=== PATIENT | male | born 1945 | race Caucasian/White ===

== ENCOUNTER → 2018-02-28 08:03 | Outpatient (REF) | payer MEDICARE, SELFPAY | LOC: LAB 08:03 | PROVIDERS: Family Provider Internal Medicine; PCP Dermatology; Visit Provider Dermatology | DX: L02.821 Furuncle of head [any part, except face] (principal) | CPT/HCPCS: 87070; 87075; 87205 ==

== ENCOUNTER → 2019-11-13 11:31 | Outpatient (CLI) | payer OTHER, SELFPAY ==
--- NOTE | 2019-11-13 | DI.CT.S_ITS ---
PROCEDURE: CT SOFT TISSUE NECK W CON INDICATIONS: Chronic pharyngitis TECHNIQUE: After the administration of intravenous contrast, 3.0 mm axial sections acquired from the sella to the aortic arch. Additional oblique axial 3.0 mm sections acquired through the pharynx. 3 mm thick coronal and sagittal reformats were generated. For radiation dose reduction, the following was used: automated exposure control. COMPARISON: None. FINDINGS: Image quality: Excellent. Lymph nodes: No enlarged lymph nodes seen throughout the neck. Vessels: Visualized vasculature appears patent. Neck spaces: The oropharynx, nasopharynx, and pharynx demonstrate no mucosal lesions. The vocal cords, false vocal cords, pyriform sinuses, epiglottis, vallecula, and tongue base all appear normal. Extramucosal spaces appear unremarkable. Glands: The parotid and submandibular glands appear normal. Thyroid gland is normal. Miscellaneous: Visualized brain and orbits appear normal. Lung apices appear clear. Severe emphysematous Superficial soft tissues appear normal. Bones: There is fusion of C5-C7. There is mild degenerative disease at C3-C4 and C4-C5. Mild/moderate bilateral facet arthropathy at C2-C3, C3-C4 and C4-C5. No suspicious bony lesions. Visualized sinuses and mastoids appear unremarkable. IMPRESSION: 1. No acute abnormalities. 2. Severe emphysema. 3. Degenerative and postsurgical changes in cervical spine. Dictated by: Hayley Kirby M.D. on 11/13/2019 at 16:23 Approved by: Hayley Kirby M.D. on 11/13/2019 at 17:59
[2019-11-13 12:12] LABS: BUN Creatinine Ratio 32.9 (6-22); Blood Urea Nitrogen 23 mg/dL (9-20); Calcium 9.6 mg/dL (8.4-10.2); Carbon Dioxide 30 mmol/L (22-32); Chloride 102 mmol/L (98-107); Estimated Glomerular Filt Rate > 60.0 mL/min (>60); Glucose 110 mg/dL (80-110); HEMOLYSIS 36 (0-50); Potassium 4.3 mmol/L (3.4-5.1); Sodium 141 mmol/L (137-145)
== END ==
DX: J31.2 Chronic pharyngitis (principal); J43.9 Emphysema, unspecified; M47.812 Spondylosis without myelopathy or radiculopathy, cervical region; M50.31 Other cervical disc degeneration, high cervical region; Z98.1 Arthrodesis status
CPT/HCPCS: 36415; 70491; 80048; Q9967

== ENCOUNTER → 2020-03-06 12:40 | Outpatient (CLI) | payer OTHER, SELFPAY ==
--- NOTE | 2020-03-06 | DI.CT.S_ITS ---
PROCEDURE: CT CHEST WO CON INDICATIONS: EMPHYSEMA TECHNIQUE: Noncontrast 5 mm thick sections acquired from the pulmonary apices to the posterior costophrenic angles. 1 mm lung window, 5 mm thick coronal and sagittal and 7 mm axial MIP reformats were then acquired. For radiation dose reduction, the following was used: automated exposure control, adjustment of mA and/or kV according to patient size. COMPARISON: [facility], CT, CHEST ANGIO-PE, 05/17/2014, 21:12. FINDINGS: Image quality: Excellent. Lungs and pleura: No acute consolidation. There is extensive and diffuse upper lobe predominant emphysema. Large biapical pleural blebs. No pleural effusions or pneumothorax. Central and peripheral airways are patent and normal in caliber. Mediastinum: Heart size is normal. Coronary artery calcifications are present. No pericardial effusion. No mediastinal adenopathy by size criteria. Thoracic aorta and central pulmonary arteries are normal in size. Esophagus is normal in caliber. No hiatal hernia. Bones and chest wall: No suspicious bony lesions. Diffuse osteopenia. Multilevel spondylitic changes. No vertebral body compression fractures. No axillary or supraclavicular adenopathy by size criteria. Thyroid gland negative. Abdomen: Visualized upper abdominal solid organs and bowel loops appear normal in the absence of contrast. IMPRESSION: Severe, upper lobe predominant diffuse emphysema. This appears mildly progressed since 05/17/14. Coronary artery disease. Dictated by: Harvey Arzola M.D. on 03/06/2020 at 15:19 Approved by: Harvey Arzola M.D. on 03/06/2020 at 15:25
== END ==
PROVIDERS: Visit Provider Internal Medicine
DX: J43.9 Emphysema, unspecified (principal); I25.10 Atherosclerotic heart disease of native coronary artery without angina pectoris
CPT/HCPCS: 71250

== ENCOUNTER 2022-06-11 10:24 | Emergency (ER) | payer OTHER, SELFPAY ==
[2022-06-11 10:26] VITALS: BP 148/68; PULSE 84; RESP 16; TEMP 36.7; O2SAT 94; BMI 26.2
[2022-06-11 10:29] VITALS: BP 148/68; PULSE 85; O2SAT 97
[2022-06-11 10:30] VITALS: BP 148/67; PULSE 74; O2SAT 95
--- NOTE | 2022-06-11 10:32 | DI.RAD.S_ITS ---
PROCEDURE: XR CHEST 2V INDICATIONS: shortness of breath TECHNIQUE: 2 views of the chest were acquired. COMPARISON: [facility], , CHEST 2 VIEW, 05/25/2014, 14:20. FINDINGS: Surgical changes and devices: None. Lungs and pleura: Centrilobular emphysema. Lungs are clear. No pleural effusions or pneumothorax. Mediastinum: Mediastinal contours are normal. Heart size is normal. Bones and chest wall: No suspicious bony abnormalities. Soft tissues appear unremarkable. IMPRESSION: COPD. No evidence acute pulmonary process. Dictated by: Guru Qiu M.D. on 06/11/2022 at 11:12 Approved by: Guru Qiu M.D. on 06/11/2022 at 11:13
--- NOTE | 2022-06-11 10:37 | PC.NURSE ---
pt reports blood in urine starting last night, some sob especially with exertion, teleheath visit with from [facility] and advised to get checked further in [place].
[2022-06-11 10:49] LABS: Prothrombin Time 11.7 SECONDS (10.1-12.7)
[2022-06-11 10:51] LABS: PTT Partial Thromboplastin Tim 31 SECONDS (26.4-36.2)
[2022-06-11 10:52] LABS: Alanine Aminotransferase 16 IU/L (<50); Albumin 4.3 g/dL (3.5-5.0); Albumin Globulin Ratio 1.4 (1.0-2.8); Alkaline Phosphatase 102 U/L (38-126); Aspartate Aminotransferase 22 IU/L (17-59); BUN Creatinine Ratio 20.5 (6-22); Bilirubin Total 0.6 mg/dL (0.2-1.3); Blood Urea Nitrogen 17 mg/dL (9-20); Calcium 9.2 mg/dL (8.4-10.2); Carbon Dioxide 28 mmol/L (22-32); Chloride 102 mmol/L (98-107); Estimated Glomerular Filt Rate > 60 mL/min (>60); Globulin 3.1 g/dL (1.7-4.1); Glucose 147 mg/dL (80-110); HEMOLYSIS < 15 (0-50); Potassium 4.1 mmol/L (3.4-5.1); Sodium 139 mmol/L (137-145); Total Protein 7.4 g/dL (6.3-8.2)
[2022-06-11 10:55] LABS: Add Manual Diff / Slide Review NO; Basophils Absolute Auto 100 /uL (0-100); Basophils Percent Auto 0.7 % (0-2); Creatine Kinase 49 U/L (55-170); Eosinophils Absolute Auto 100 /uL (0-450); Eosinophils Percent Auto 0.6 % (2-4); Hematocrit 44.2 % (41-53); Hemoglobin 15.4 g/dL (13.5-17.5); Lactate (Lactic Acid) 1.3 mmol/L (0.7-2.1); Lymphocytes Absolute Auto 900 /uL (1100-4500); Lymphocytes Percent Auto 8.9 % (25-40); Mean Corpuscular HGB Conc 34.8 % (30-36); Mean Corpuscular Hemoglobin 32.3 PG (26-34); Mean Corpuscular Volume 92.7 fL (80-100); Monocytes Absolute Auto 500 /uL (0-900); Monocytes Percent Auto 4.7 % (3-14); Neutrophils Absolute Auto 9000 /uL (1500-7000); Neutrophils Percent Auto 85.1 % (50-75); Platelet Count 235 X10^3/uL (150-400); Red Blood Cell Count 4.78 X10^6/uL (4.5-5.9); Red Cell Distribution Width 15.1 % (11.6-14.8); White Blood Cell Count 10.5 X10^3/uL (4.5-11.0)
--- NOTE | 2022-06-11 10:58 | ED_ITS ---
HPI - Male Genitourinary General Chief complaint: Urogenital-Male Stated complaint: UTI with hematuria- sent by [facility] Time Seen by Provider: 06/11/22 10:34 Source: patient Mode of arrival: Ambulatory Limitations: no limitations History of Present Illness HPI Narrative: This is a 76-year-old male with history of recurrent UTIs for the past 5 years, patient had cystoscopy 3-4 years ago, COPD on home O2, patient has had a low back fusion x2 and developed complications with foot drop which improved over time. Patient presents today states a month ago he had a bladder infection was on Keflex for 7 days instead of what he was expecting 10. He states symptoms improved but maybe never totally resolved. Wednesday he had increasing urgency. This morning he woke up at about 4:00 a.m. with increasing urgency, hematuria with clots and dysuria. Patient denies fevers or chills. No chest pain or pressure. Some very mild shortness of breath. No nausea or vomiting. He states he has been recently somewhat constipated used an enema and sometimes takes Dulcolax. Patient does have a sense of incomplete emptying normally and does not feel a significant change or that he is retaining a large amount of urine. No new swelling in extremities. Allergies include gabapentin, patient states Cipro gives him significant tendon pain but he has had Levaquin without issue. Related Data Home Medications Medication Instructions Recorded Confirmed ALUM HYD/MAG HYD (#MAALOX) 30 ml TIDP ##0 01/28/12 CYANOCOBALAMIN (#VITAMIN B12) 2,500 mcg sublingual Q DAY ##0 01/28/12 Multivitamin, Minerals, and 1 tab PO Q DAY ##0 01/28/12 (#CENTRUM SILVER) OMEPRAZOLE 20 mg BID ##0 01/28/12 Oxycodone (OXYCODONE IR) 5 mg PO QID ##0 01/28/12 Ranitidine Hydrochloride 300 mg PO HS ##0 01/28/12 (RANITIDINE) docusate sodium 100 mg capsule 200 mg PO QDAY ##0 01/28/12 Previous Rx's Medication Instructions Recorded nitrofurantoin 100 mg PO Q12H #20 caps 06/11/22 monohydrate/macrocrystals 100 mg capsule (Macrobid) Allergies Allergy/AdvReac Type Severity Reaction Status Date / Time gabapentin [From Neurontin] Allergy Verified 06/11/22 10:30 nitrofurantoin Allergy Verified 06/11/22 10:30 Review of Systems Review of Systems ROS Unobtainable: All systems reviewed & are unremarkable except as noted in HPI and below Patient History Social History Smoking Status: Current some day smoker Smoking Status: Current some day smoker alcohol intake frequency: holidays/special occasions only Substance Use Type: does not use Exam Narrative Exam Narrative: GENERAL: Alert and oriented x three, elderly male in mild distress. HEENT: Head normocephalic, atraumatic, EOMI, pupils reactive, face symmetric, moist mucous membranes NECK: Supple, full range of motion CARDIOVASCULAR: Regular rate and rhythm without murmurs, rubs or gallops. RESPIRATORY: Breath sounds equal bilaterally, no wheezes rales or rhonchi. ABDOMEN: Soft, nontender. Normoactive bowel sounds all 4 quadrants. No guarding or rebound, rigidity, no mass : No CVA tenderness EXTREMITIES: Normal range of motion, no clubbing or edema. Neurovascularly intact NEUROLOGICAL: Cranial nerves II through XII grossly intact. Moving all extremities SKIN: Warm, dry, no petechiae, no rashes or lesions. Initial Vital Signs Initial Vital Signs: Vital Signs Temperature 98.0 F 06/11/22 10:26 Pulse Rate 84 06/11/22 10:26 Respiratory Rate 16 06/11/22 10:26 Blood Pressure 148/68 H 06/11/22 10:26 Pulse Oximetry 94 06/11/22 10:26 Oxygen Delivery Method 06/11/22 10:26 Course Orders Ordered: ED Orders 06/11/22 10:32 XR chest 2V Stat BNP [NT-proBNP (BNP-Adult 18+)] Stat CBC Auto Diff [Complete Blood Count AUTO DIFF] Stat CMP [Comprehensive Metabolic Panel] Stat Lactate (Lactic Acid) Stat PTT [Partial Thromboplastin Time] Stat Prothrombin Time INR Stat Troponin & CK Cardiac Panel Stat UA Complete [Urinalysis and Microscopic] Stat Urine Culture Stat Measure peak expiratory flow ONCE RT Consult Eval and Treat Now 06/11/22 10:40 EKG-12 Lead Stat Vital Signs Vital signs: Vital Signs - 8 hr 06/11/22 10:26 06/11/22 10:29 06/11/22 10:29 Temperature 98.0 F Pulse Rate 84 85 Respiratory Rate 16 Blood Pressure 148/68 H 148/68 H Pulse Oximetry 94 97 Oxygen Delivery Method Room Air 06/11/22 10:30 06/11/22 10:30 Temperature Pulse Rate 74 Respiratory Rate Blood Pressure 148/67 H Pulse Oximetry 95 Oxygen Delivery Method MDM - Male Genitourinary Lab Data Result diagrams: 06/11/22 10:32 06/11/22 10:32 Labs: Lab Results 06/11/22 06/11/22 06/11/22 Range/Units 10:32 10:32 10:32 WBC 10.5 (4.5-11.0) X10^3/uL RBC 4.78 (4.5-5.9) X10^6/uL Hgb 15.4 (13.5-17.5) g/dL Hct 44.2 (41-53) % MCV 92.7 (80-100) fL MCH 32.3 (26-34) PG MCHC 34.8 (30-36) % RDW 15.1 H (11.6-14.8) % Plt Count 235 (150-400) X10^3/uL Neut % (Auto) 85.1 H (50-75) % Lymph % (Auto) 8.9 L (25-40) % [place] % (Auto) 4.7 (3-14) % Eos % (Auto) 0.6 L (2-4) % Baso % (Auto) 0.7 (0-2) % Neut # (Auto) 9000 H (5079-2556) /uL Lymph # (Auto) 900 L (3518-6658) /uL [place] # (Auto) 500 (0-900) /uL Eos # (Auto) 100 (0-450) /uL Baso # (Auto) 100 (0-100) /uL PT 11.7 (10.1-12.7) SECONDS INR 1.0 (0.9-1.3) APTT 31 (26.4-36.2) SECONDS Sodium (137-145) mmol/L Potassium (3.4-5.1) mmol/L Chloride (98-107) mmol/L Carbon Dioxide (22-32) mmol/L BUN (9-20) mg/dL Creatinine (0.66-1.25) mg/dL Estimated GFR (>60) mL/min BUN/Creatinine Ratio (6-22) Glucose (80-110) mg/dL Lactate 1.3 (0.7-2.1) mmol/L Calcium (8.4-10.2) mg/dL Total Bilirubin (0.2-1.3) mg/dL AST (17-59) IU/L ALT (<50) IU/L Alkaline Phosphatase (38-126) U/L Total Creatine Kinase (55-170) U/L CK-MB (CK-2) CK-MB (CK-2) Rel Index Troponin I (0.01-0.034) ng/mL NT-Pro-B Natriuret Pep (<450) pg/mL Total Protein (6.3-8.2) g/dL Albumin (3.5-5.0) g/dL Globulin (1.7-4.1) g/dL Albumin/Globulin Ratio (1.0-2.8) Urine Color Urine Appearance Urine pH (4.5-8.0) Ur Specific [place] (1.000-1.035) Urine Protein (Negative) Urine Glucose (UA) (Negative) g/dL Urine Ketones (NEGATIVE) Urine Occult Blood (Negative) Urine Nitrate (Negative) Urine Bilirubin (NEGATIVE) Urine Urobilinogen (0.2) E.U./dL Ur Leukocyte Esterase (NEGATIVE) Urine RBC (0-5/HPF) Urine WBC (0-5/HPF) Ur Squamous Epith Cells (0-5/HPF) Urine Bacteria (None) Ur Culture Indicated? 06/11/22 06/11/22 06/11/22 Range/Units 10:32 10:32 10:32 WBC (4.5-11.0) X10^3/uL RBC (4.5-5.9) X10^6/uL Hgb (13.5-17.5) g/dL Hct (41-53) % MCV (80-100) fL MCH (26-34) PG MCHC (30-36) % RDW (11.6-14.8) % Plt Count (150-400) X10^3/uL Neut % (Auto) (50-75) % Lymph % (Auto) (25-40) % [place] % (Auto) (3-14) % Eos % (Auto) (2-4) % Baso % (Auto) (0-2) % Neut # (Auto) (4991-5289) /uL Lymph # (Auto) (2119-3932) /uL [place] # (Auto) (0-900) /uL Eos # (Auto) (0-450) /uL Baso # (Auto) (0-100) /uL PT (10.1-12.7) SECONDS INR (0.9-1.3) APTT (26.4-36.2) SECONDS Sodium 139 (137-145) mmol/L Potassium 4.1 (3.4-5.1) mmol/L Chloride 102 (98-107) mmol/L Carbon Dioxide 28 (22-32) mmol/L BUN 17 (9-20) mg/dL Creatinine 0.83 (0.66-1.25) mg/dL Estimated GFR > 60 (>60) mL/min BUN/Creatinine Ratio 20.5 (6-22) Glucose 147 H (80-110) mg/dL Lactate (0.7-2.1) mmol/L Calcium 9.2 (8.4-10.2) mg/dL Total Bilirubin 0.6 (0.2-1.3) mg/dL AST 22 (17-59) IU/L ALT 16 (<50) IU/L Alkaline Phosphatase 102 (38-126) U/L Total Creatine Kinase 49 L (55-170) U/L CK-MB (CK-2) TNP CK-MB (CK-2) Rel Index TNP Troponin I < 0.012 (0.01-0.034) ng/mL NT-Pro-B Natriuret Pep 260 (<450) pg/mL Total Protein 7.4 (6.3-8.2) g/dL Albumin 4.3 (3.5-5.0) g/dL Globulin 3.1 (1.7-4.1) g/dL Albumin/Globulin Ratio 1.4 (1.0-2.8) Urine Color [place] Urine Appearance Sl cloudy Urine pH 6.5 (4.5-8.0) Ur Specific [place] 1.015 (1.000-1.035) Urine Protein 2+ H (Negative) Urine Glucose (UA) Trace H (Negative) g/dL Urine Ketones Trace H (NEGATIVE) Urine Occult Blood 3+ H (Negative) Urine Nitrate Positive H (Negative) Urine Bilirubin Negative (NEGATIVE) Urine Urobilinogen 4.0 H (0.2) E.U./dL Ur Leukocyte Esterase 2+ H (NEGATIVE) Urine RBC 30-100/hpf H (0-5/HPF) Urine WBC 30-100/hpf H (0-5/HPF) Ur Squamous Epith Cells 1-5 /hpf (0-5/HPF) Urine Bacteria Many (>30) H (None) Ur Culture Indicated? Specimen cultured ECG Data Attestation: I personally reviewed and interpreted this ECG as follows: Prior ECG tracings: available for review Interpretation: Sinus rhythm with frequent PVCs, no acute ST changes. Rate of 69, pr 170 QRS 102, QTc 420. No acute changes ST changes noted. Appears similar to prior. MDM Narrative Medical decision making narrative: 76-year-old male with history of recurrent UTIs, labs and EKG do not show any significant drop in hemoglobin, no elevated white count, coags are normal, renal function and electrolytes show no major changes. Troponin BNP are not elevated. Chest x-ray shows no acute change. If urine shows signs of infection would start patient on oral antibiotic if only hematuria without any signs of infection would obtain imaging of urologic system. Patient's urine seems very consistent with infection. Plan to cover patient with Macrobid he states he is taken this in the past without any issue. He has had tendon issues with Cipro but interestingly not with Levaquin. Patient is aware should follow-up for possible repeat cystoscopy as it has been 3 or 4 years if he is having persistent hematuria and needs to have his urine rechecked. Discharge Plan Departure Patient Disposition: Home Clinical Impression: Hematuria, Acute UTI Instructions: DI for Hematuria Activity Restrictions/Additional Instructions: Follow-up with urology if you continue to have regular persistent bladder infections or hematuria. If this continues you would need cystoscopy again. Take antibiotics until completely gone. Prescription sent to [facility] in [place]. If you develop fevers, new or worsening abdominal, back or flank pain, persistent vomiting, black or bloody stools, persistent hematuria or blood in your urine, inability to urinate or other new or concerning symptoms please return. Prescriptions: New nitrofurantoin monohyd/m-cryst [Macrobid] 100 mg capsule 100 mg PO Q12H Qty: 20 0RF Rx Instructions: must administer with a meal/food No Action ALUM HYD/MAG HYD (#MAALOX) 30 ml TIDP Qty: 0 OMEPRAZOLE 20 mg BID Qty: 0 Ranitidine Hydrochloride (RANITIDINE) 300 mg PO HS Qty: 0 Oxycodone (OXYCODONE IR) 5 mg PO QID Qty: 0 docusate sodium 100 MG capsule 200 mg PO QDAY Qty: 0 Multivitamin, Minerals, and (#CENTRUM SILVER) 1 tab PO Q DAY Qty: 0 CYANOCOBALAMIN (#VITAMIN B12) 2,500 mcg Sublingual Q DAY Qty: 0 Visit Report Forms: Patient Portal/API
[2022-06-11 11:05] LABS: NT-proBNP (BNP-Adult 18+) 260 pg/mL (<450); Troponin I < 0.012 ng/mL (0.01-0.034)
[2022-06-11 11:19] LABS: Appearance Urine UA SL CLOUDY; Bilirubin Urine UA NEGATIVE (NEGATIVE); Color Urine UA ORANGE; Glucose Urine UA TRACE g/dL (Negative); Ketones Urine UA TRACE (NEGATIVE); Leukocyte Esterase Urine UA 2+ (NEGATIVE); Nitrite Urine UA POSITIVE (Negative); Occult Blood Urine UA 3+ (Negative); Protein Urine UA 2+ (Negative); Specific Gravity Urine UA 1.015 (1.000-1.035); pH Urine UA 6.5 (4.5-8.0)
[2022-06-11 11:50] LABS: Bacteria Urine Many (>30); Culture Indicated Urine Specimen Cultured; RBC Urine 30-100/HPF (0-5/HPF); Squamous Epithelial Cell Urine 1-5 /HPF (0-5/HPF); WBC Urine 30-100/HPF (0-5/HPF)
== END 2022-06-11 12:05 | disposition home or self-care (01) ==
PROVIDERS: Emergency Provider Emergency Medicine
DX: N39.0 Urinary tract infection, site not specified (principal); R31.9 Hematuria, unspecified; R06.02 Shortness of breath
CPT/HCPCS: 36415; 71046; 80053; 81001; 82550; 83605; 83880; 84484; 85025; 85610; 85730; 87077; 87086; 93005; 93010; 99283; 99284

== ENCOUNTER → 2023-04-23 07:46 | Outpatient (CLI) | payer MEDICARE, SELFPAY ==
--- NOTE | 2023-04-23 | DI.MRI.S_ITS ---
PROCEDURE: MR HEAD/BRAIN WO/W CON INDICATIONS: SMALL CELL LUNG CANCER/LOOKING FOR METASTASIS TECHNIQUE: Noncontrast axial T1 spin echo, axial T2 fast spin echo, sagittal and axial FLAIR, coronal T2 fast spin echo, axial gradient echo, axial diffusion and ADC through the brain. After the administration of contrast, axial and coronal and sagittal T1 spin echo with fat saturation through the brain. COMPARISON: None. FINDINGS: Image quality: Excellent. CSF spaces: Basal cisterns are patent. No extra-axial fluid collections. Ventricles are normal in size and shape. Brain: No midline shift. No intracranial bleeds or masses. No abnormal intracranial enhancement. There is cerebral volume loss for age. There is periventricular white matter chronic small vessel ischemic change. The brainstem appears normal. Diffusion-weighted images demonstrate no acute ischemic insults. No chronic ischemic insults. Normal intravascular flow voids are present. Skull and face: Calvarial marrow is normal in signal. Orbits appear normal. Sinuses: Mastoids are clear. Mild mucosal thickening within the bilateral maxillary and ethmoid sinuses. IMPRESSION: 1. Mild volume loss and small vessel ischemic disease. 2. No acute process. No recent infarct. 3. Mild sinus disease. Dictated by: Laine Quiroga M.D. on 04/23/2023 at 9:08 Approved by: Laine Quiroga M.D. on 04/23/2023 at 9:09
== END ==
PROVIDERS: PCP Nurse Practitioner Family; Referring Provider Internal Medicine; Visit Provider Internal Medicine
DX: J32.8 Other chronic sinusitis (principal); C34.90 Malignant neoplasm of unspecified part of unspecified bronchus or lung
CPT/HCPCS: 70553

== ENCOUNTER 2023-10-10 09:20 | Emergency (ER) | payer OTHER, MEDICARE, SELFPAY ==
--- NOTE | 2023-10-10 09:35 | ED.GENADULT ---
HPI - General Adult General Chief complaint: Recheck/Abnormal Lab/Rx Stated complaint[facility] Time Seen by Provider: 10/10/23 09:23 Source: patient, RN notes reviewed and old records reviewed Mode of arrival: Wheelchair Limitations: no limitations History of Present Illness HPI narrative: 78-year-old male with history of COPD on home O2, low back fusion x2, GERD and recurrent UTIs with request for pain medication refill. Patient states his other medications were all filled appropriately but his morphine and oxycodone were not. He presents with his prescription bottles notes on the bottle next due 09/30/2023. He states he would just like doses to get him through to Wednesday or Wednesday morning when the [facility] can [facility]. Patient takes oxycodone 5 mg q.i.d. as needed as well as morphine 15 mg SA tab, 1 tablet t.i.d. as needed for chronic pain. Patient states he feels like he is starting both withdrawal his last medication was yesterday morning he is had runny nose, he is had nausea but no vomiting. He is felt increased pain. He denies new chest pain or shortness of breath. He states no diarrhea. He does present with discharge paperwork from [facility] noted that his O2 sat was increased and he is on a concentrator and is 92% on 6 L here. He states that he is had his normal baseline otherwise. He states he does not feel he needs workup for further evaluation for his chronic medical issues. Patient denies any drug allergies besides gabapentin and Macrobid. He does present with phone number. Related Data Home Medications Medication Instructions Recorded Confirmed ALUM HYD/MAG HYD (#MAALOX) 30 ml TIDP ##0 01/28/12 05/13/23 OMEPRAZOLE 20 mg BID ##0 01/28/12 05/13/23 Oxycodone (OXYCODONE IR) 5 mg PO QID ##0 01/28/12 05/13/23 Ranitidine Hydrochloride 300 mg PO HS ##0 01/28/12 05/13/23 (RANITIDINE) docusate sodium 100 mg capsule 200 mg PO QDAY ##0 01/28/12 05/13/23 hyoscyamine 0.15 mg tablet 0.125 mg PO DAILY 05/13/23 05/13/23 ipratropium 0.5 mg-albuterol 3 mg 3 ml inhalation QID 05/13/23 05/13/23 (2.5 mg base)/3 mL nebulization soln Previous Rx's Medication Instructions Recorded morphine 15 mg immediate release 15 mg PO Q6H PRN pain #10 tabs 10/10/23 tablet morphine 15 mg tablet,extended 15 mg PO Q8H #10 tabs 10/10/23 release oxycodone 5 mg tablet 5 mg PO Q6H PRN pain #10 tabs 10/10/23 Allergies Allergy/AdvReac Type Severity Reaction Status Date / Time gabapentin [From Neurontin] Allergy Verified 06/11/22 10:30 nitrofurantoin Allergy Verified 06/11/22 10:30 Review of Systems Review of Systems ROS Unobtainable: All systems reviewed & are unremarkable except as noted in HPI and below Patient History Medical History Emphysema lung On home oxygen therapy Tobacco abuse COPD (chronic obstructive pulmonary disease) Surgical History H/O cystoscopy History of bronchoscopy (~04/12/23) H/O spinal fusion Social History Smoking Status: Former smoker substance use type: does not use Smoking Status: Current some day smoker alcohol intake frequency: holidays/special occasions only Substance Use Type: does not use Exam Narrative Exam Narrative: GENERAL: Alert and oriented x three, elderly male in mild distress. HEENT: Head normocephalic, atraumatic, EOMI, pupils reactive, face symmetric, moist mucous membranes NECK: Supple, full range of motion CARDIOVASCULAR: Regular rate and rhythm without murmurs, rubs or gallops. RESPIRATORY: Breath sounds equal bilaterally, no wheezes rales or rhonchi. Patient has concentrate or with nasal cannula in place. When moved over to wall maintains at 92% on 6 L. ABDOMEN: Soft, nontender. Normoactive bowel sounds all 4 quadrants. No guarding or rebound, rigidity, no mass : No CVA tenderness EXTREMITIES: Normal range of motion, no clubbing or edema. Neurovascularly intact NEUROLOGICAL: Cranial nerves II through XII grossly intact. Moving all extremities SKIN: Warm, dry, no petechiae, no rashes or lesions. Initial Vital Signs Initial Vital Signs: Vital Signs Temperature 98.8 F 10/10/23 09:37 Pulse Rate 86 10/10/23 09:37 Respiratory Rate 18 10/10/23 09:37 Blood Pressure 139/88 10/10/23 09:37 Pulse Oximetry 92 10/10/23 09:37 Oxygen Delivery Method Nasal Cannula 10/10/23 09:37 Oxygen Flow Rate 6 10/10/23 09:37 Course Orders Ordered: Discontinued Medications Morphine Sulfate (Morphine Ir 15 Mg Tablet) 15 mg PO NOW ONE Stop: 10/10/23 09:35 Last Admin: 10/10/23 09:37 Dose: 15 mg Documented By: ELSIE Oxycodone HCl (Oxycodone Ir 5 Mg Tablet) 5 mg PO NOW ONE Stop: 10/10/23 09:34 Last Admin: 10/10/23 09:38 Dose: 5 mg Documented By: ELSIE Vital Signs Vital signs: Vital Signs - 8 hr 10/10/23 09:37 Temperature 98.8 F Pulse Rate 86 Respiratory Rate 18 Blood Pressure 139/88 Pulse Oximetry 92 Oxygen Delivery Method Nasal Cannula Oxygen Flow Rate 6 Medical Decision Making MDM Narrative Medical decision making narrative: Patient presents requesting short term narcotic pain medication refill as he states his other medications were all refilled properly with his last hospitalization but not his narcotics. [place] prescription database does note last refill was from 08/17/2023 and before this was 913 and 815 and appears very appropriate that patient is likely very compliant with his medications. Presents with his prescription bottles which notes a next refill was due 09/30/2023 and 09/02/2023. Patient had 84 tablets filled on his morphine 15 mg and 112 tablets for his oxycodone. Patient is requesting refill to get him to Wednesday. Patient was given 10 tablets of each. Sent to [facility] pharmacy patient's request. Patient does have chronic medical issues but states he feels like he is otherwise at his baseline but starting to go through some narcotic withdrawal which is understandable based on his current dosage. Patient feels comfortable with this plan states he has not appointment on Wednesday with [facility] and they are already supposed to be refilling his prescription. Patient had dose of home pain medication in department. He has ride that is with him at bedside. Discharge Plan Departure Patient Disposition: Home Clinical Impression: Encounter for medication refill Activity Restrictions/Additional Instructions: [facility] with [facility] for [facility] of your oxy[facility]one and morphine. Please call 1st thing Wednesday morning to make sure there filling your medications. A short term prescription was sent to [facility] in [place] for morphine oxycodone. Continue your home medications as prescribed. Let your physician know that this prescription was sent so they are aware you have a pain contract. Please return for new or worsening symptoms, if you are having new chest pain or shortness of breath, new swelling of her extremities, increasing cough, coughing up blood, fevers, persistent nausea or vomiting, diarrhea or black or bloody stools or other new or concerning changes. Prescriptions: New oxycodone 5 mg tablet 5 mg PO Q6H PRN (Reason: pain) Qty: 10 0RF morphine 15 mg tablet 15 mg PO Q6H PRN (Reason: pain) Qty: 10 0RF morphine 15 mg tablet extended release 15 mg PO Q8H Qty: 10 0RF Discontinued morphine 15 mg Tablet 15 mg PO TID PRN (Reason: Pain (Scale Score 4-6)) No Action ALUM HYD/MAG HYD (#MAALOX) 30 ml TIDP Qty: 0 OMEPRAZOLE 20 mg BID Qty: 0 Ranitidine Hydrochloride (RANITIDINE) 300 mg PO HS Qty: 0 Oxycodone (OXYCODONE IR) 5 mg PO QID Qty: 0 docusate sodium 100 MG capsule 200 mg PO QDAY Qty: 0 ipratropium-albuterol [DuoNeb] 0.5 mg-3 mg(2.5 mg base)/3 mL Solution For Nebulization 3 ml INHALATION QID hyoscyamine 0.15 mg Tablet 0.125 mg PO DAILY Referrals: Jorge Mcclendon ARNP [Primary Care Provider] - Stand Alone Forms: Patient Portal/API
[2023-10-10 09:37] VITALS: BP 139/88; PULSE 86; RESP 18; TEMP 37.1; O2SAT 92; BMI 30.8
[2023-10-10] MEDS: MORPHINE IR 15 MG TABLET PO (09:37)
[2023-10-10] MEDS: OXYCODONE IR 5 MG TABLET PO (09:38)
== END 2023-10-10 10:20 | disposition home or self-care (01) ==
PROVIDERS: Emergency Provider Emergency Medicine; PCP Nurse Practitioner Family
DX: Z76.0 Encounter for issue of repeat prescription (principal)
CPT/HCPCS: 99282; 99284